=== PATIENT | female | born 1980 | race Caucasian/White ===

== ENCOUNTER 2022-02-13 16:47 | Emergency (ER) | payer BC, SELFPAY ==
--- NOTE | ~2022-02-13 | XR_ITS ---
EXAMINATION: XR chest 2V 02/13/2022 17:25 INDICATION: Cough. PROCEDURE: 2 view chest COMPARISON: No prior studies for comparison. FINDINGS: The lungs are clear. The cardiomediastinal silhouette is within normal limits. There are no pleural effusions. There is no pneumothorax suspected. IMPRESSION: 1: NO ACUTE CARDIOPULMONARY DISEASE. Reviewed, dictated and finalized at location [facility]. [facility]
[2022-02-13 16:54] VITALS: BP 148/88; PULSE 110; RESP 20; TEMP 36.7; O2SAT 100
--- NOTE | 2022-02-13 16:54 | ED.URI ---
HPI - URI/Sore Throat General Chief Complaint: Upper Respiratory Infection Stated Complaint: Shortness of Breath Time Seen by Provider: 02/13/22 16:54 Source: patient and RN notes reviewed History of Present Illness HPI Narrative: patient is a 41-year-old female who presents to the Urgent Care with complaints of increased shortness of breath and wheezing. Patient was diagnosed with influenza on Thursday and started with shortness of breath today. Patient states that her cough was initially productive and is now dry. Patient has increasing shortness of breath while lying flat. Reports of some nasal congestion. Reports fevers. No other acute complaints. No acute distress noted. Patient aware of the plan of care . Some parts of this dictation were generated by voice recognition software and may contain typographical and/or grammatical inaccuracies. Related Data Home Medications Medication Instructions Recorded Confirmed alprazolam 0.5 mg tablet mg 02/13/22 aripiprazole 10 mg tablet mg 02/13/22 atorvastatin 40 mg tablet mg 02/13/22 duloxetine 30 mg capsule,delayed mg PO 02/13/22 release levothyroxine 50 mcg tablet mcg 02/13/22 lisinopril 2.5 mg tablet mg 02/13/22 Allergies Allergy/AdvReac Type Severity Reaction Status Date / Time metoclopramide [From Reglan] Allergy Unknown Verified 02/13/22 17:01 Penicillins Allergy Unknown Verified 02/13/22 17:01 Sulfa (Sulfonamide Allergy Unknown Verified 02/13/22 17:01 Antibiotics) Review of Systems Review of Systems: CONSTITUTIONAL: reports a fever EYES: Denies visual changes, redness, or discharge. ENT: reports rhinorrhea, nasal congestion and postnasal drainage CARDIOVASCULAR: Denies chest pain, palpitations, or edema. RESPIRATORY: Reports of dry cough dyspnea GASTROINTESTINAL: Denies abdominal pain, nausea, vomiting, or diarrhea. GENITOURINARY: Denies dysuria or hematuria. SKIN: Denies rash or itching. MUSCULOSKELETAL: Denies back pain, joint pain. Reports of body aches NEUROLOGIC: Denies headache, numbness, or weakness. All other systems reviewed are negative, except as documented in HPI. PMFSH Comments At the time of my signature, I reviewed and agree with the nursing past medical, surgical, social, and family history. There is no relevant family history pertinent to the patient complaint. Exam Narrative: GENERAL: This is a well-nourished, well-developed patient, in no apparent distress. HEAD: normocephalic, atraumatic. EYES: PERRL. Sclera clear/white. Vision is grossly intact. EARS: External ears normal, auditory canals clear and without drainage, TMs normal without perforation. Hearing grossly intact. NOSE: External nose normal with no obvious nasal discharge, nares without redness, clear yellow rhinorrhea. THROAT: Mucous membranes moist, posterior pharynx clear. mild postnasal drainage NECK: Neck supple, non-tender without lymphadenopathy CARDIOVASCULAR: Regular rate and rhythm without murmurs, gallops, or rubs. RESPIRATORY: diminished throughout without wheezes SKIN: warm, intact with no suspicious lesions or rash, good texture and turgor. NEURO: awake, alert, and oriented to person, place and time. There were no obvious focal neurologic abnormalities. EXTREMITIES: No clubbing, cyanosis, or edema. Course Course Level of Care: Express Care Visit Vital Signs Vital signs: Vital Signs Temperature 98.1 F 02/13/22 16:54 Pulse Rate 110 H 02/13/22 16:54 Respiratory Rate 20 02/13/22 16:54 Blood Pressure 148/88 H 02/13/22 16:54 Pulse Oximetry 100 02/13/22 16:54 Oxygen Delivery Room Air 02/13/22 16:54 Temperature 98.1 F 02/13/22 16:54 Pulse Rate 110 H 02/13/22 16:54 Respiratory Rate 20 02/13/22 16:54 Blood Pressure 148/88 H 02/13/22 16:54 Pulse Oximetry 100 02/13/22 16:54 Oxygen Delivery Room Air 02/13/22 16:54 reviewed- Patient is informed that they may have pre-hypertension or hypertension base
== END 2022-02-13 17:40 | disposition home or self-care (01) ==
PROVIDERS: Emergency Provider Nurse Practitioner Family
DX: J11.1 Influenza due to unidentified influenza virus with other respiratory manifestations (principal); E78.00 Pure hypercholesterolemia, unspecified; I10 Essential (primary) hypertension
CPT/HCPCS: 71046; 99213; G0463